=== PATIENT | female | born 1980 | race Caucasian/White ===

== ENCOUNTER 2018-01-19 12:53 | Emergency (ER) | payer OTHER ==
[~2018-01-19] VITALS: Ht 165.1 cm; Wt 77.6 kg
[~2018-01-19 12:53] MED LIST: CORTISPORIN OTI10 M2 OT; IBUPROFEN 600600 M1 PO; IBUPROFEN 800800 MG PO; NOHOMEMEDICATIONS; PENICILLIN V P500 MG PO; PENICILLIN VK250 MG PO; PHENERGAN 25 MG25 MG PO; tamiflu PO
[2018-01-19 13:00] VITALS: BP 113/65
[2018-01-19] MEDS ORDERED: MOBIC7.5 MG PO (13:31)
[2018-01-19] MEDS ORDERED: TRAZODONE HCL100 MG PO (13:37)
[2018-01-19] MEDS ORDERED: XANAX1 MG PO (13:37)
[2018-01-19] MEDS ORDERED: ABILIFY 5 MG TAB5 MG PO (13:37)
[2018-01-19] MEDS ORDERED: PROPRANOLOL 20M20 M1 PO (13:38)
[2018-01-19] MEDS ORDERED: PROZAC20 MG PO (13:38)
== END 2018-01-19 13:40 | disposition home or self-care (01) ==
LOC: ER 12:53
DX: S60.221A Contusion of right hand, initial encounter (principal); F17.210 Nicotine dependence, cigarettes, uncomplicated; F41.9 Anxiety disorder, unspecified; F32.9 Major depressive disorder, single episode, unspecified; Z88.6 Allergy status to analgesic agent; W23.1XXA Caught, crushed, jammed, or pinched between stationary objects, initial encounter; Y92.89 Other specified places as the place of occurrence of the external cause; Y93.89 Activity, other specified; Y99.8 Other external cause status